=== PATIENT | male | born 1975 | race Caucasian/White ===

== ENCOUNTER 2025-04-29 09:09 | Outpatient (AMB) | payer OTHER, SELFPAY ==
--- NOTE | 2025-04-29 09:10 | MHC.OFFVIS ---
Intake Visit Reasons: peyronie's Intake Note: New Patient presents for initial visit for peyronie's Urology Medications: previously treated with cortisol injection and pentoxifylline Blood Thinner: none Inside Sales Trainer Required: No Accompanied by: Self / Same As Patient Allergies No Known Allergies Allergy (Verified 04/29/25 09:40) Medication List - Last Reconciled 04/29/25 by HAYLIE SchaferP- bisoprolol fumarate 5 mg PO DAILY empagliflozin (Jardiance) 5 mg PO DAILY metformin ER 500 mg PO QPM rosuvastatin 5 mg PO BEDTIME telmisartan-hydrochlorothiazid 80-12.5 mg 0.5 tabs PO DAILY HPI Comments Details: Derrek is a 49-year-old male patient of Dr. Serna. He has a past medical history of type 2 diabetes and hypertension. He presents to the office today as a new patient for Peyronie's disease. In discussion with the patient today he reports previously following up with a provider in [place] and underwent injection treatments for his Peyronie's however has recently moved here in his looking to undergo further treatment options. He reports upon initial treatment in [place] with injection therapy he felt symptoms improved however has noted over the last 6 months he continues with painful erections and left deviation with erections. He denies any bothersome urinary issues. He denies urinary urgency, urinary frequency, incontinence, nocturia, hematuria, dysuria, foul smelling urine, changes to urinary stream, flank pain, fever, and or chills. He is happy with his current voiding parameters. We did discuss potential causes of Peyronie's disease as well as further treatment options. Information was provided. All questions were answered. He does discuss he might be moving to new or [place] in the near future as he has recently applied to a job in his awaiting to hear back. He otherwise offers no other issues or concerns at this time. [facility] Medical History Immunity to hepatitis B virus demonstrated by serologic test Type 2 diabetes mellitus without complication Essential hypertension Surgical History History of colonoscopy Review of Systems Const All systems reviewed & are unremarkable except as noted in HPI and below Physical Exam Const General: cooperative, healthy appearing, comfortable, no acute distress, well developed, alert and awake Orientation/consciousness: patient oriented x3 Limitations: no limitations HEENT Head: Yes normal to inspection, Yes normocephalic and Yes atraumatic Ears: hearing grossly normal bilaterally Eyes General: appearance normal, both eyes and all related structures Neck Neck: Yes normal visual inspection and Yes trachea midline Chest Chest palpation & inspection: normal inspection of the chest Resp Effort & Inspection: normal respiratory effort and able to speak in complete sentences Cardio Rate: regular rate GI Inspection: Yes normal to inspection General: Yes no CVA tenderness Back/Spine/Pelvis Back: no CVA tenderness Skin General skin exam: no rashes or lesions noted Neuro General: patient oriented x3 Extrem General: Yes normal to inspection Psych Appearance: grossly normal and well kempt Mental Status: mental status grossly normal Speech and movement: Normal speech and movement present and Clear speech present Affect: normal affect Attitude: cooperative Thought process: Normal thought process present Thought content: Normal thought content present Insight: Fair insight present (Psych) Judgement: Fair judgement present (Psych) Results AMB Urinalysis, Automated UA Leukoctes 0 Radha/uL Last Edit by Gerardo Larose CCM on 04/29/25 09:30 UA Nitrite Last Edit by Gerardo Larose [facility] on 04/29/25 09:30 UA Urobilinogen 0.2 mg/dL Last Edit by Gerardo Larose [facility] on 04/29/25 09:30 UA Protein 0 mg/dL Last Edit by Gerardo Larose [facility] on 04/29/25 09:30 UA pH 6.0 Last Edit by Gerardo Larose [facility] on 04/29/25 09:30 UA Blood 0 Ki/uL Last Edit by Gerardo Larose [facility] on 04/29/25 09:30 UA Specific [place] 1.015 Last Edit by Gerardo Larose CCM on 04/29/25 09:30 UA Ketone Last Edit by Gerardo Larose [facility] on 04/29/25 09:30 UA Bilirubin 0 mg/dL Last Edit by Gerardo Larose [facility] on 04/29/25 09:30 UA Glucose 0 mg/dL Last Edit by Gerardo Larose [facility] on 04/29/25 09:30 Results Reviewed Results Reviewed: Laboratory Last Values Urine pH (Auto) 6.0 04/29/25 09:28 Specific [place] (Auto) 1.015 04/29/25 09:28 Urine Protein (Auto) 0 mg/dL 04/29/25 09:28 Glucose (UA)(Auto) 0 mg/dL 04/29/25 09:28 Urine Blood (Auto) 0 Ki/uL 04/29/25 09:28 Urine Bilirubin (Auto) 0 mg/dL 04/29/25 09:28 Urine Urobilinogen (Auto) 0.2 mg/dL 04/29/25 09:28 Leukocyte Esterase (Auto) 0 Radha/uL 04/29/25 09:28 Assessment & Plan Assessment & Plan (1) Peyronie's disease: Code(s): N48.6 - Induration penis plastica Category: Medical Plan In office urinalysis results reviewed with the patient today; as noted above. We did discussed at length potential causes of Peyronie's as well as further treatment options and risks and benefits of these treatment options. All questions were answered. Start pentoxifylline, vitamin-D, and Cialis as prescribed Information provided regarding penile pump as well as Peyronie's He denies any bothersome urinary issues He reports be happy with current voiding parameters Will obtain PSA and testosterone for further assessment evaluation Follow-up in 3-6 months with labs to be completed prior; or sooner with any issues, concerns, and or questions were Orders: Orders AMB Urinalysis Automated Today Z13.9 - Encounter for screening, unspecified Testosterone, Free/Total Today E11.69 - Type 2 diabetes mellitus with other specified complication, N48.6 - Induration penis plastica, N52.1 - Erectile dysfunction due to diseases classified elsewhere Prostate Specific Antigen Today N48.6 - Induration penis plastica Medications: New pentoxifylline ER 400 mg PO BID 180 tabs 1RF 90 days vitamin E (dl, acetate) 450 mg PO DAILY 90 caps 1RF 90 days tadalafil [id number] [facility] GroupG[facility] Member [id number] 5 mg PO DAILY 90 tabs 1RF sexual activity 90 days Patient Instructions: The patient had an opportunity to ask questions regarding the treatment plan. All questions were answered. Physical exam, labs, and imaging were discussed and reviewed in detail. As well as risks, benefits, and discussion of treatment choices. No major barriers to understanding were identified. The patient expressed understanding and agreement with the above treatment plan. The patient was made aware they should contact our office by phone for worsening of their current condition, the appearance of new symptoms, or with any questions or concerns. Compliance is encouraged with any medications and follow up testing that is ordered. It is a privilege to be allowed the opportunity to participate in? your urological care.? Again, if you have any questions or concerns If you have any questions or concerns please do not hesitate to contact me. The office is [phone]. This note is constructed using voice recognition software. While every effort has been made to ensure accuracy tearoom host/hostess errors may have been included. Yours sincerely, MINOR Schafer Coding Level of Care Code New Pt Level 4 (42483) Diagnoses Peyronie's disease N48.6
--- OUTSIDE RECORDS SUMMARY | 2025-04-29 09:32 | XMS_ITS | Clinical Summary ---
Author Organization [facility] Address [facility] [address] [place] [address] Care Team Providers Care Produce Clerk Name Role Phone Corina Serna PA-C Primary Care Provider Source Comments PLEASE NOTE, if this patient is a minor, it may be UNLAWFUL to discuss sensitive information that is contained in these records (such as FAMILY PLANNING, MENTAL HEALTH or SUBSTANCE ABUSE) with the minor patient's parent or other person without the patient's specific authorization.[facility] Allergies No known active allergies Medications empagliflozin (JARDIANCE) 10 mg tabIndications:Typ e 2 diabetes mellitus without complication, without long-term current use of insulin ([facility]) Take 1/2 tablet daily 30 Tablet 2 09/18/20 24 Active rosuvastatin (CRESTOR) 5 mg tabletIndications: Hyperlipidemia, unspecified hyperlipidemia type TAKE 1 TABLET BY MOUTH EVERYDAY AT BEDTIME 90 Tablet 1 01/29/20 25 Active telmisartan-hydroc hlorothiazid (MICARDIS HCT) 80-12.5 mg per tabletIndications: Essential (primary) hypertension TAKE 1/2 TABLET BY MOUTH EVERY DAY 45 Tablet 1 02/21/20 25 Active bisoprolol (ZEBETA) 5 mg tabletIndications: Essential (primary) hypertension TAKE 1 TABLET BY MOUTH EVERY DAY 90 Tablet 04/23/20 25 Active metFORMIN XR (GLUCOPHAGE-XR) 500 mg 24 hr tabletIndications: Type 2 diabetes mellitus without complication, without long-term current use of insulin ([facility]) TAKE 1 TABLET BY MOUTH ONCE DAILY WITH DINNER 90 Tablet 04/23/20 25 Active metFORMIN XR (GLUCOPHAGE-XR) 500 mg 24 hr tabletIndications: Type 2 diabetes mellitus without complication, without long-term current use of insulin ([facility]) TAKE 1 TABLET BY MOUTH ONCE DAILY WITH DINNER 90 Tablet 01/21/20 25 025 Discontinued bisoprolol (ZEBETA) 5 mg tabletIndications: Essential (primary) hypertension TAKE 1 TABLET BY MOUTH EVERY DAY 90 Tablet 01/21/20 25 025 Discontinued Active Problems Problem Noted Date Diagnosed Date H/O complete eye exam 02/14/2025 Overview (02/14/2025): 02/12/2025 - Ophthalmology - [facility] - Dx: Chorioretinal Scars Macula OD - mild - Monitor annually; Borderline DM - No retinopathy found - re-eval 1 yr; Presbyopia - Rx new glasses - f/u 1 year DEF H/O colonoscopy 12/17/2024 Overview (12/17/2024): 11/28/2024 - Colonoscopy - [facility] - Impression: Exam portion of the ileum was normal; entire exam colon is normal on direct and retroflexion views; No specimens collected - Recommend - Colonoscopy in 10 yrs for screening purposes Immunity to hepatitis B viru s demonstrated by serologic test 10/29/2024 Essential (primary) hypertension Type 2 diabetes mellitus wit hout complications ([facility]) Encounters Date Type Department Care Team Description 02/05/2025 8:20 AM EDT Telemedicine Visit [address] [id number] Corina Serna PA-C from Last 3 Months Immunizations Immunization Administration Dates Next Due COVID-19,SARS-COV-2 VACCINE, UNSPECIFIED (US Admin) 10/17/2021,05/08/2021,02/03/2021 Hep B, Adult/Adol (LUFHKET-P-KBFEC/RECOMBIVAX-ADULT) 11/21/2022,06/12/2016,12/29/2015,2015 INFLUENZA, SEASONAL, INJECTABLE 07/05/2022 MMR (MMR II/Priorix) 11/21/2022 MMRV, Live (Proquad) 09/27/2012 PNEUMOCOCCAL CONJUGATE PCV 2 0 (Prevnar 20) 10/29/2024 TDAP 11/21/2022 Td (adult),2 Lf tetanus toxo id (TDVAX), preservative free 09/27/2022,07/05/2022,02/05/2002 Varicella (Varivax), Live Vaccine 11/21/2022 Family History Medical History Relation Name Comments No Known Problems Daughter Diabetes Father Esophageal Cancer Maternal Grandfather No Known Problems Maternal Grandmother Hypertension Mother No Known Problems Paternal Grandfather No Known Problems Paternal Grandmother No Known Problems Sister No Known Problems Son Relation Name Status Comments Daughter Alive Father Alive Maternal Grandfather Maternal Grandmother Mother Alive Paternal Grandfather Paternal Grandmother Sister Alive Son Alive Social History Tobacco Use Types Packs/Day Years Used Date Smoking Tobacco: Some Days Cigarettes Smokeless Tobacco: Never Tobacco Cessation:Ready to Q uit: Not Asked; Counseling Given: Not Answered Comments:Occasional Tobacco Use - Cigarettes - 1 - 2/month - started at 39 years of age Alcohol Use Standard Drinks/Week Comments Yes 0 (1 standard drink = 0.6 oz pur e alcohol) occasional/social Social Connections Answer Date Recorded How often do you feel lonely or isolated from th ose around you? 1 10/29/2024 Financial Resource Strain Answer Date R ecorded Hard to pay for: Food 1 10/29/2024 Stress Answer Date Recorded Do you feel these kinds of stress these days? 1 10/29/2024 Physical Activity Answer Date Recorded Physical Activity 0 06/24/2024 Food Insecurity Answer Date Recorded Hard to pay for: Food 1 10/29/2024 Transportation Needs Answer Date Record ed Hard to pay for: Transportation 1 10/29/2024 Housing Stability Answer Date Recorded Hard to pay for: Rent/Mortgage payment 1 10/29/2024 Safety and Environment Answer Date Joel rded Safety 0 06/24/2024 Utilities Answer Date Recorded Hard to pay for: Utilities 1 10/29 Employment Answer Date Recorded Stress 0 07/01/2024 Sex and Gender Information Value Date Recorded Sex Assigned at Male 02/22/2024 7:04 AM PDT Legal Sex Male 7:03 AM PDT Gender Identity Male 02/22/2024 7:04 AM PDT Sexual Orientation Straight 02/22/2024 7: 04 AM PDT Last Filed Vital Signs Vital Sign Reading Time Taken Comments Blood Pressure 100/68 10/29/2024 11:25 AM EST Pulse 70 10/29/2024 11:25 AM EST Temperature 36.7 C (98 F) 10/29/2024 11:25 AM EST Respiratory Rate 16 10/29/2024 11:25 AM EST Oxygen Saturation 98% 10/29/2024 11:25 AM EST Inhaled Oxygen Concentration - - Weight 68 kg (150 lb) 10/29/2024 11:25 AM EST Height 165.1 cm (5' 5 ) 10/29/2024 11:25 AM EST Body Mass Index 24.96 10/29/2024 11:25 AM EST Plan of Treatment Health Maintenance Due Date Last Done Comments Dental Examination 1976 Tobacco Cessation Counseling (#1) 1976 CT Colonography 2021 FIT/gFOBT 2021 Fecal DNA 2021 Flexible Sigmoidoscopy 2021 Hemoglobin A1c 06/05/2025 12/06/2024, 10/28/2024 Imm-Influenza (#1) 2025 08/25/2024, 07/05/2022 Anxiety Screening 09/18/2025 09/18/2024 Lipid Screening 10/28/2025 10/28/2024 Serum Creatinine 10/28/2025 10/28/2024 Annual Wellness (Adult): Indicated (All Coverage) 10/29/2025 10/29/2024 Diabetes Foot Exam 10/29/2025 10/29/2024 Urine Albumin Creatinine Rat io Screening 12/06/2025 12/06/2024, 10/28/2024 Retinopathy Screening 02/12/2026 02/12/2025 Imm-DTaP/Tdap/Td (2 - Td or Tdap) 11/21/2032 11/21/2022, 09/27/2022, 07/05/2022, Additional history exists Colonoscopy 11/28/2034 11/28/2024, 11/28/2024 Colorectal Cancer Screening 11/28/2034 Imm-Hepatitis B Discontinued 11/21/2022, 05/17, 12/29/2015, Additional history exists [id number] Completed 08/25/2024, 11/2021, 05/08/2021, Additional history exists HIV Screening Completed 10/28/2024 Hepatitis C Screening Completed 10/28/2024 Alcohol and Drug Screen Completed 10/29/2024 Depression Annual Screen Completed 10/29/2024 Imm-Pneumococcal Completed 10/29/2024 Procedures Procedure Name Priority Date/Time Associated Diagnosis Comments REFERRAL TO OPHTHALMOLOGY Routine 02/12/2025 3:00 AM EDT Essential (primary) hypertension Type 2 diabetes mellitus without complication, without long-term current use of insulin ([facility]) REFERRAL SCANNED DOCUMENT 02/10/2025 3:00 AM EDT MICROALBUMIN/CREATINI NE RATIO, URINE, RANDOM Routine 12/06/2024 10:55 AM EST Elevated glucose Type 2 diabetes mellitus without complication, without long-term current use of insulin ([facility]) HGBA1C W/MPG Routine 12/06/2024 10:55 AM EST Elevated glucose Type 2 diabetes mellitus without complication, without long-term current use of insulin ([facility]) REFERRAL FOR COLONOSCOPY Routine 11/28/2024 3:00 AM EST Annual physical exam HIV 1/2 AG & AB W/RFLX (4TH GEN) Routine 10/28/2024 8:39 AM EST Encounter to establish care COMPREHENSIVE METABOLIC PANEL Routine 10/28/2024 8:39 AM EST Encounter to establish care Type 2 diabetes mellitus without complication, without long-term current use of insulin ([facility]) Essential (primary) hypertension HEPATITIS C AB W/RFLX HCV RNA, QT, RT PCR Routine 10/28/2024 8:39 AM EST Encounter to establish care LIPID PANEL Routine 10/28/2024 8:39 AM EST Encounter to establish care Type 2 diabetes mellitus without complication, without long-term current use of insulin ([facility]) Essential (primary) hypertension from Last 3 Months or Most Recently Relevant to Health Maintenance Results * REFERRAL TO OPTHALMOLOGY (02/12/2025 3:00 AM EDT) 02/12/2025 3:00 AM EDT Corina Serna PA-C REFERRAL Final Resul t * REFERRAL SCANNED DOCUMENT (02/10/2025 3:00 AM EDT) 02/10/2025 3:00 AM EDT Result [facility] Provider Default SCAN REFERRAL Final Resu lt * (ABNORMAL) HGBA1C W/MPG (12/06/2024 10:55 AM EST) HEMOGLOBIN A1C 6.2(H) <5.7 % of total Hgb [facility] Comment: For someone without known diabetes, a hemoglobin A1c value between 5.7% and 6.4% is consistent with prediabetes and should be confirmed with a follow-up test. For someone with known diabetes, a value <7% indicates that their diabetes is well controlled. A1c targets should be individualized based on duration of diabetes, age, comorbid conditions, and other considerations. This assay result is consistent with an increased risk of diabetes. Currently, no consensus exists regarding use of hemoglobin A1c for diagnosis of diabetes for children. MEAN PLASMA GLUCOSE 143 mg/dL (calc) [facility] Blood Blood / Unknown 12/06/2024 1 0:55 AM EST 12/06/2024 10:56 AM EST Narrative [facility] - 12/08/2024 11:54 PM EST FASTING:NO Result [facility] Corina Serna PA-C LAB - BLOOD DRAW Edited Res ult - Final [facility] [address] [place] [id number], [facility] [address] [place] [phone] * MICROALBUMIN/CREATININE RATIO, URINE, RANDOM (12/06/2024 10:55 AM EST) CREATININE, RANDOM URINE 56 20 - 320 mg/dL [facility] MICROALBUMIN <0.2 mg/dL [facility] Comment: Reference Range Not established MICROALBUMIN/CREA TININE RATIO, RANDOM URINE NOTE <30 [facility] Comment: NOTE: The urine albumin value is less than 0.2 mg/dL therefore we are unable to calculate excretion and/or creatinine ratio. The ADA defines abnormalities in albumin excretion as follows: Albuminuria Category Result (mg/g creatinine) Normal to Mildly increased <30 Moderately increased 30-299 Severely increased > OR = 300 The ADA recommends that at least two of three specimens collected within a 3-6 month period be abnormal before considering a patient to be within a diagnostic category. Urine Urine specimen / Unknown 12/06/2024 10:55 AM EST 12/06/2024 10:56 AM EST Narrative [facility] - 12/08/2024 11:54 PM EST FASTING:NO us Corina Serna PA-C LAB URINE AMBULATORY Final Result [facility] [address] [address], [facility] [address] [phone] * REFERRAL FOR COLONOSCOPY (11/28/2024 3:00 AM EST) 11/28/2024 3:00 AM EST Result Sander Serna PA-C REFERRAL Final Resul t * HEPATITIS C AB W/RFLX HCV RNA, QT, RT PCR (10/28/2024 8:39 AM EST) HEPATITIS C ANTIBODY NON-REACT ROBERTO NON-REACT ROBERTO [facility] Comment: HCV antibody was non-reactive. There is no laboratory evidence of HCV infection. In most cases, no further action is required. However, if recent HCV exposure is suspected, a test for HCV RNA (test code 57595) is suggested. For additional information please refer to http://education.Angiodroid/faq/QKW00w2 (This link is being provided for informational/ educational purposes only.) Blood Blood / Unknown 10/28/2024 8 :39 AM EST 10/28/2024 8:40 AM EST us Corina Serna PA-C LAB - BLOOD DRAW Edited Res ult - Final Performing Organization Address City/[facility]/ZIP Co de Phone Number [facility] [address] [address], [facility] [address] [address] * HIV 1/2 AG & AB W/RFLX (4TH GEN) (10/28/2024 8:39 AM EST) Pathologist [facility] HIV AG/AB, 4TH GEN NON-REAC TIVE NON-REAC TIVE [facility] Comment: HIV-1 antigen and HIV-1/HIV-2 antibodies were not detected. There is no laboratory evidence of HIV infection. PLEASE NOTE: This information has been disclosed to you from records whose confidentiality may be protected by state law. If your state requires such protection, then the state law prohibits you from making any further disclosure of the information without the specific written consent of the person to whom it pertains, or as otherwise permitted by law. A general authorization for the release of medical or other information is NOT sufficient for this purpose. For additional information please refer to http://education.Angiodroid/faq/ROY077 (This link is being provided for informational/ educational purposes only.) The performance of this assay has not been clinically validated in patients less than 2 years old. Blood Blood / Unknown 10/28/2024 8 :39 AM EST 10/28/2024 8:40 AM EST Corina Serna PA-C LAB - BLOOD DRAW Final Resu lt Performing Organization Address City/[facility]/ZIP Co de Phone Number [facility] [address] [address], [facility] [address] [address] * (ABNORMAL) LIPID PANEL (10/28/2024 8:39 AM EST) Pathologist [facility] CHOLESTEROL, TOTAL 243(H) <200 mg/dL [facility] HDL CHOLESTEROL 49 > OR = 40 mg/dL [facility] TRIGLYCERIDES 191(H) <150 mg/dL [facility] LDL-CHOLESTEROL 159(H) 99 mg/dL (calc) [facility] Comment: Reference range: <100 Desirable range <100 mg/dL for primary prevention; <70 mg/dL for patients with CHD or diabetic patients with > or = 2 CHD risk factors. LDL-C is now calculated using the Mau calculation, which is a validated novel method providing better accuracy than the Friedewald equation in the estimation of LDL-C. Dave SS et al. CASSANDRA. 2013;310(19): 3823-0058 (http://education.Badge/faq/EQJ555) CHOL/HDLC RATIO 5.0(H) <5.0 (calc) [facility] NON-HDL CHOLESTEROL 194(H) <130 mg/dL (calc) [facility] Comment: For patients with diabetes plus 1 major ASCVD risk factor, treating to a non-HDL-C goal of <100 mg/dL (LDL-C of <70 mg/dL) is considered a therapeutic option. Blood Blood / Unknown 10/28/2024 8 :39 AM EST 10/28/2024 8:40 AM EST Corina Serna PA-C LAB - BLOOD DRAW Final Resu lt [facility] [address] [place] [address], [facility] [address] [place] [phone] * (ABNORMAL) COMPREHENSIVE METABOLIC PANEL (10/28/2024 8:39 AM EST) GLUCOSE 116(H) 65 - 99 mg/dL [facility] Comment: Fasting reference interval For someone without known diabetes, a glucose value between 100 and 125 mg/dL is consistent with prediabetes and should be confirmed with a follow-up test. UREA NITROGEN (BUN) 17 7 - 25 mg/dL [facility] CREATININE (blood) 0.95 0.60 - 1.29 mg/dL [facility] EGFR 99 > OR = 60 mL/min/1. 73m2 [facility] BUN/CREATININE RATIO SEE NOTE: [facility] Comment: Not Reported: BUN and Creatinine are within reference range. SODIUM 140 135 - 146 mmol/L [facility] POTASSIUM 4.6 3.5 - 5.3 mmol/L [facility] CHLORIDE 103 98 - 110 mmol/L [facility] CARBON DIOXIDE 29 20 - 32 mmol/L [facility] CALCIUM 9.9 8.6 - 10.3 mg/dL [facility] PROTEIN, TOTAL 7.5 6.1 - 8.1 g/dL [facility] ALBUMIN 4.9 3.6 - 5.1 g/dL [facility] GLOBULIN 2.6 1.9 - 3.7 g/dL (calc) [facility] ALBUMIN/GLOBULI N RATIO 1.9 1.0 - 2.5 (calc) [facility] BILIRUBIN, TOTAL 0.5 0.2 - 1.2 mg/dL [facility] ALKALINE PHOSPHATASE 70 36 - 130 U/L [facility] AST 20 10 - 40 U/L [facility] ALT 24 9 - 46 U/L [facility] Blood Blood / Unknown 10/28/2024 8 :39 AM EST 10/28/2024 8:40 AM EST Corina Serna PA-C LAB - BLOOD DRAW Edited Res ult - Final [facility] [address] [address], [facility] [address] [place] [address] from Last 3 Months or Most Recently Relevant to Health Maintenance Insurance [employer] Member Subscriber Plan / Payer (Ef fective 2023-Present) Name:Derrek Tang Relation to Subscriber:Self Name:Derrek Tang Payer ID:[id number] Type:Indemnity Address: [facility] [address] [place] [address] Care Teams Produce Clerk Relationship Specialty Start Date End Date Corina Serna PA-C [address] [place] [address] PCP - General Primary Care 07/09/24
--- OUTSIDE RECORDS SUMMARY | 2025-04-29 09:32 | XMS_ITS | Clinical Summary ---
Author Organization Patient Business Ser [facility] Address [address] [place] [address] Care Team Providers Care Content Checker Name Role Phone Corina Serna Primary Care Provider [phone] Allergies No known active allergies Medications rosuvastatin (CRESTOR) 5 mg tablet Take 1 tablet (5 mg total) by mouth 1 (one) time each day. Active bisoprolol (ZEBETA) 5 mg tablet Take 1 tablet (5 mg total) by mouth 1 (one) time each day. Active metFORMIN XR (GLUCOPHAGE-XR) 500 mg 24 hr tablet Take 1 tablet (500 mg total) by mouth 1 (one) time each day with dinner. Do not crush, chew, or split. Active empagliflozin (JARDIANCE) 10 mg tablet Take 0.5 tablets (5 mg total) by mouth 1 (one) time each day. Active telmisartan-hyd roCHLOROthiazid e (MICARDIS HCT) 80-12.5 mg per tablet Take 0.5 tablets by mouth 1 (one) time each day. Active polyethylene glycol (Golytely) 236-22.74-6.74 -5.86 gram solution Take 4L by mouth once for one dose. May substitue any PEG. Starting at 6PM the night before your procedure drink 1 8oz glasses at your own pace until you complete half of the gallon. Finish 2nd half of the gallon 5 hours before your procedure. 4000 mL 5 Active bisacodyL (DULCOLAX) 5 mg EC tablet Take 2 tablets by mouth right before beginning bowel prep. See instructions provided by the office 2 tablet Active Encounters Date Type Department Care Team Description 03/05/2025 9:45 AM EDT Consult Orthopedic Surgery - [facility] [address] [place] [phone] Ralf Haney, DPM Type 2 diabetes mellitus without complication, without long-term current use of insulin ([facility] V24, [facility] V28) from Last 3 Months Immunizations Name Administration Dates Next Due SARS-COV-2 (COVID-19) Vaccine, Unspecified 10/17,05/08/2021,02/03/2021 Surgical History Surgery Date Site/Laterality Comments VARICOCELECTOMY COLONOSCOPY Medical History Medical History Date Comments Diabetes mellitus ([facility] V24, [facility] V28) Hypertension Hyperlipidemia Hepatitis B Social History Tobacco Use Types Packs/Day Years Used Date Smoking Tobacco: Never Smokeless Tobacco: Never Tobacco Cessation:Counseling Given: Not Answered Alcohol Use Standard Drinks/Week Comments Not Currently 0 (1 standard drink = 0.6 oz pur e alcohol) Interpersonal Safety Answer Date Record ed Physical Abuse 11/28/2024 Verbal Abuse 11/28/2024 Sex and Gender Information Value Date Recorded Sex Assigned at Male 11/26/2024 8:06 PM EST Legal Sex Male 3:43 PM EDT Gender Identity Male 11/26/2024 8:06 PM EST Sexual Orientation Straight 11/26/2024 8: 06 PM EST Obstetrics History Last Filed Vital Signs Vital Sign Reading Time Taken Comments Blood Pressure 99/60 11/28/2024 1:13 PM EST Pulse 67 11/28/2024 1:13 PM EST Temperature 36.7 C (98 F) 11/28/2024 12:16 PM EST Respiratory Rate 20 11/28/2024 1:13 PM EST Oxygen Saturation 100% 11/28/2024 1:13 PM EST Inhaled Oxygen Concentration - - Weight 69 kg (152 lb 1.9 oz) 11/20/2024 11:00 AM EST Height 171 cm (5' 7.32 ) 11/20/2024 11:00 AM EST Body Mass Index 23.6 11/20/2024 11:00 AM EST Plan of Treatment Upcoming Encounters Date Type Department Care Team (Late st Contact Info) Description 03/05/2026 9:00 AM EDT Office Visit Orthopedic Surgery - [facility] [address] [facility] [address] [place] [phone] Ralf Haney, RAULITO [address] [facility] [address] [place] [address] Health Maintenance Due Date Last Done Comments Diabetes: Annual Foot Exam 1986 Diabetes: Annual Retina Eye Exam 1986 HIV Screening 06/26/2024 Social Influencers of Health Screening 06/26/2024 Diabetes: Blood Sugar Control Test (HGBA1C) 06/05/2025 12/06/2024, 10/28/2024 Influenza Vaccine (#1) 2025 08/25/2024, 2021 Diabetes: Annual GFR (Glomerular Filtration Rate) 10/28/2025 10/28/2024 Hypertension/CHF/CAD Annual BMP Blood Test 10/28/2025 10/28/2024 Depression Screening 10/29/2025 10/29/2024 Diabetes: Annual Urine Albumin-Creatinine Ratio (uACR) 12/06/2025 12/06/2024, 10/28/2024 Cholesterol Screening (Lipid Panel) 10/28/2029 10/28/2024, 10/28/2024 DTaP,Tdap,and Td Vaccines (5 - Td or Tdap) 11/21/2032 11/21/2022, 09/27/2022, 07/05/2022, Additional history exists Colorectal Cancer Screening: Colonoscopy 11/28/2034 11/28/2024 Hepatitis B Vaccines Completed 11/21/2022, 06/12/2016, 12/29/2015, Additional history exists MMR Vaccines Aged Out 11/21/2022, 09/27/2012 No lo nger eligible based on patient's age to complete this topic Varicella Vaccines Aged Out 11/21/2022, 09/27/2012 No longer eligible based on patient's age to complete this topic COVID-19 Vaccine Completed 08/25/2024, 11/2021, 05/08/2021, Additional history exists Hepatitis C Screening Completed 10/28/2024 Pneumococcal Vaccine: Pediatrics (0 to 5 Years) and At-Risk Patients (6 to 49 Years) Completed 10/29/2024 HIB Vaccines Aged Out No longer eligi ble based on patient's age to complete this topic HPV Vaccines Aged Out No longer eligi ble based on patient's age to complete this topic Hepatitis A Vaccines Aged Out No long er eligible based on patient's age to complete this topic IPV Vaccines Aged Out No longer eligi ble based on patient's age to complete this topic Meningococcal ACWY Vaccine Aged Out N o longer eligible based on patient's age to complete this topic Meningococcal B Vaccine Aged Out No l onger eligible based on patient's age to complete this topic RSV Immunization Patients Under 20 months Aged Out No longer eligible based on patient's age to complete this topic Procedures Procedure Name Priority Date/Time Associated Diagnosis Comments COLONOSCOPY Routine 11/28/2024 12:52 PM EST Colon cancer screening from Last 3 Months or Most Recently Relevant to Health Maintenance Results * COLONOSCOPY Anesthesia - MAC; [facility] ENDOSCOPY (11/28/2024 12:52 PM EST) Anatomical Region Laterality Modality Endoscopy 11/28/2024 12:2 7 PM EST Impressions 11/28/2024 12:52 PM EST - The examined portion of the ileum was normal. - The entire examined colon is normal on direct and retroflexion views. - No specimens collected. Recommendation: - Repeat colonoscopy in 10 years for screening purposes. Narrative 11/28/2024 12:[address] [facility] Patient Name: Liam Tang Procedure Date: 11/28/2024 12:27 PM Date of : 1975 Age: 49 Gender: Male Note Status: Finalized Attending MD: Margie Martin MD, Procedure Date No Time: 11/28/2024 Procedure: Colonoscopy Indications: Screening for colorectal malignant neoplasm Providers: Margie Martin MD Referring MD: Corina Serna Medicines: Propofol per Anesthesia Complications: No immediate complications. Estimated Blood Loss: Estimated blood loss: none. Procedure: Pre-Anesthesia Assessment: - ASA Grade Assessment: II - A patient with mild systemic disease. After I obtained informed consent, the scope was passed under direct vision. Throughout the procedure, the patient's blood pressure, pulse, and oxygen saturations were monitored continuously.The Colonoscope was introduced through the anus and advanced to the terminal ileum. The colonoscopy was performed without difficulty. The patient tolerated the procedure well. The quality of the bowel preparation was good. Findings: The perianal and digital rectal examinations were normal. The terminal ileum appeared normal. The entire examined colon appeared normal on direct and retroflexion views. Procedure Code(s): --- Professional --- G0121, Colorectal cancer screening; colonoscopy on individual not meeting criteria for high risk Diagnosis Code(s): --- Professional --- Z12.11, Encounter for screening for malignant neoplasm of colon CPT copyright 2020 [employer]. All rights reserved. The codes documented in this report are preliminary and upon professional tutor review may be revised to meet current compliance requirements. Margie Martin MD 11/28/2024 12:52:16 PM This report has been signed electronically.Margie Martin MD Number of Addenda: 0 Note Initiated On: 11/28/2024 12:27 PM Scope In: Scope Out: Endoscopy Department at [facility] - [address] [place] [phone] Procedure Note Margie Martin MD - 11/28/2024 [facility] Patient Name: Liam Tang Procedure Date: 11/28/2024 12:27 PM Date of : 1975 Age: 49 Gender: Male Note Status: Finalized Attending MD: Margie Martin MD, Procedure Date No Time: 11/28/2024 Procedure: Colonoscopy Indications: Screening for colorectal malignant neoplasm Providers: Margie Martin MD Referring MD: Corina Serna Medicines: Propofol per Anesthesia Complications: No immediate complications. Estimated Blood Loss: Estimated blood loss: none. Procedure: Pre-Anesthesia Assessment: - ASA Grade Assessment: II - A patient with mild systemic disease. After I obtained informed consent, the scope was passed under direct vision. Throughout theprocedure, the patient's blood pressure, pulse, and oxygen saturations were monitored continuously.The Colonoscope was introduced through the anus and advanced to the terminal ileum. The colonoscopy was performed without difficulty. The patient tolerated the procedure well. The quality of the bowel preparation was good. Findings: The perianal and digital rectal examinations were normal. The terminal ileum appeared normal. The entire examined colon appeared normal on direct and retroflexion views. Procedure Code(s): --- Professional --- G0121, Colorectal cancer screening; colonoscopy on individual not meeting criteria for high risk Diagnosis Code(s): --- Professional --- Z12.11, Encounter for screening for malignantneoplasm of colon CPT copyright 2020 [employer]. All rights reserved. The codes documented in this report are preliminary and upon professional tutor reviewmay be revised to meet current compliance requirements. Margie Martin MD 11/28/2024 12:52:16 PM This report has been signed electronically.Margie Martin MD Number of Addenda: 0 Note Initiated On: 11/28/2024 12:27 PM Scope In: Scope Out: Endoscopy Department at [facility] - [address] [place] [phone] IMPRESSION: - The examined portion of the ileum was normal. - The entire examined colon is normal on direct and retroflexion views. - No specimens collected. Recommendation: - Repeat colonoscopy in 10 years for screening purposes. Margie Martin MD GI~PROCEDURE ORDERABLES Final Result from Last 3 Months or Most Recently Relevant to Health [place] [id number] [facility] Care Teams Content Checker Relationship Specialty Start Date End Date Corina Serna PA [address] [place] [address] PCP - General 10/30/24
== END 2025-04-29 09:48 | disposition home or self-care (01) ==
LOC: HO.HUSH 09:10
PROVIDERS: PCP Student in an Organized Health Care Education/Training Program; Visit Provider Nurse Practitioner Family
DX: Z13.9 Encounter for screening, unspecified (principal); N48.6 Induration penis plastica
CPT/HCPCS: 99204

== ENCOUNTER → 2025-04-29 09:09 | Outpatient (BNVA) | payer OTHER, SELFPAY | PROVIDERS: PCP Student in an Organized Health Care Education/Training Program; Visit Provider Nurse Practitioner Family | DX: N48.6 Induration penis plastica (principal) | CPT/HCPCS: 81003; 99202 ==